=== PATIENT | female | born 1980 | race Caucasian/White ===

== ENCOUNTER 2018-06-07 16:49 | Outpatient (REF) | payer MEDICAID, SELFPAY ==
[2018-06-12 13:18] LABS: 2-OH-Ethyl-Flurazepam Negative ng/mL (Cutoff: 100); 7-NH-Clonazepam Negative ng/mL (Cutoff: 100); 7-NH-Flunitrazepam Negative ng/mL (Cutoff: 50); Alpha OH-Alprazolam Negative ng/mL (Cutoff: 100); Alpha-OH-Triazolam Negative ng/mL (Cutoff: 100); Benzodiazepines Interpretation Negative.; Lorazepam Negative ng/mL (Cutoff: 100); Temazepam Negative ng/mL (Cutoff: 100)
== END 2018-06-07 17:09 ==
LOC: NCHCN 16:49
PROVIDERS: PCP Nurse Practitioner Family; Visit Provider Family Medicine
DX: F11.20 Opioid dependence, uncomplicated (principal)
CPT/HCPCS: 80346

== ENCOUNTER 2018-06-15 15:43 | Outpatient (CLI) | payer MEDICAID, SELFPAY ==
[2018-06-17 10:48] LABS: HIV-1/2 Ag & Ab Screen Negative (NEGAT)
[2018-06-17 11:26] LABS: Hepatitis C Ab w Rflx HCV PCR Negative (NEGAT)
[2018-06-19 10:54] LABS: Syphilis Serology (RPR) Negative (Negative)
[2018-06-19 11:12] LABS: HBs Antibody, Quant 21.5 mIU/mL; Hepatitis B Surface Ab Positive
[2018-06-19 14:24] LABS: Chlamydia Result Negative; GC Result Negative; Specimen Description URINE
== END 2018-06-15 16:03 ==
PROVIDERS: PCP Nurse Practitioner Family; Visit Provider Obstetrics & Gynecology
DX: A64 Unspecified sexually transmitted disease (principal); Z11.3 Encounter for screening for infections with a predominantly sexual mode of transmission; Z11.4 Encounter for screening for human immunodeficiency virus [HIV]; Z11.59 Encounter for screening for other viral diseases; Z01.84 Encounter for antibody response examination
CPT/HCPCS: 36415; 86706; 86803; 87389; 87491; 87591; 86592

== ENCOUNTER 2018-06-28 16:26 | Outpatient (REF) | payer MEDICAID, SELFPAY ==
[2018-07-05 09:56] LABS: Buprenorphine 57.5 ng/mL; Norbuprenorphine 251.7 ng/mL
== END 2018-06-28 16:46 ==
LOC: NCHCN 16:26
PROVIDERS: PCP Nurse Practitioner Family; Visit Provider Family Medicine
DX: F11.20 Opioid dependence, uncomplicated (principal)
CPT/HCPCS: 80307

== ENCOUNTER 2019-01-10 16:03 | Outpatient (REF) | payer MEDICAID, SELFPAY ==
[2019-01-19 07:41] LABS: Amphetamines Interpretation Positive.; MDA (Ecstasy Metabolite) Negative ng/mL (Cutoff: 25); MDMA (Ecstasy) Negative ng/mL (Cutoff: 25); Methamphetamine Negative ng/mL (Cutoff: 25); Phentermine Negative ng/mL (Cutoff: 25); Pseudoephedrine/Ephedrine Negative ng/mL (Cutoff: 25)
== END 2019-01-10 16:23 ==
LOC: NCHCN 16:03
PROVIDERS: PCP Nurse Practitioner Family; Visit Provider Family Medicine
DX: F11.20 Opioid dependence, uncomplicated (principal)
CPT/HCPCS: 80324

== ENCOUNTER 2019-02-15 15:21 | Outpatient (CLI) | payer MEDICAID, SELFPAY ==
[2019-02-17 10:19] LABS: HIV-1/2 Ag & Ab Screen Negative (NEGAT)
[2019-02-19 11:01] LABS: Hepatitis C Ab w Rflx HCV PCR Negative (NEGAT)
[2019-02-19 12:26] LABS: Syphilis Serology (RPR) Negative (Negative)
== END 2019-02-15 15:41 ==
PROVIDERS: PCP Nurse Practitioner Family; Visit Provider Nurse Practitioner Women's Health
DX: Z11.3 Encounter for screening for infections with a predominantly sexual mode of transmission (principal); Z11.4 Encounter for screening for human immunodeficiency virus [HIV]
CPT/HCPCS: 86803; 87389; 86592; 86780

== ENCOUNTER 2019-02-15 17:36 | Outpatient (REF) | payer MEDICAID, SELFPAY ==
[2019-02-19 15:30] LABS: Chlamydia Result Negative; GC Result Negative; Specimen Description CERVIX
== END 2019-02-15 17:56 ==
LOC: LBN 17:36
PROVIDERS: PCP Nurse Practitioner Family; Visit Provider Nurse Practitioner Women's Health
DX: Z11.3 Encounter for screening for infections with a predominantly sexual mode of transmission (principal)
CPT/HCPCS: 87491; 87591

== ENCOUNTER 2019-02-22 15:57 | Outpatient (CLI) | payer MEDICAID, SELFPAY ==
[2019-02-22 19:19] LABS: TSH (W/Ref FT4) 0.81 uIU/mL (0.36-3.74)
== END 2019-02-22 16:17 ==
PROVIDERS: PCP Nurse Practitioner Family; Visit Provider Nurse Practitioner Women's Health
DX: N92.0 Excessive and frequent menstruation with regular cycle (principal); R63.4 Abnormal weight loss; Z12.4 Encounter for screening for malignant neoplasm of cervix; Z11.51 Encounter for screening for human papillomavirus (HPV)
CPT/HCPCS: 36415; 88142; 84443; 87624

== ENCOUNTER 2019-02-22 17:21 | Outpatient (REF) | payer MEDICAID, SELFPAY ==
--- NOTE | 2019-02-22 16:45 | PAPFT_PTH ---
PATIENT: Cleo Purvis LOC: [facility] U#:[id number] AGE/SX: 38/F ROOM: RE02/22/[address]: Ludmila Church NP : 1980 BED: DIS: 02/22/2019 SPEC #: [id number] RECD: 02/22/19 17:59 STATUS: RAINA SMITH #: [id number] DAVID: 02/22/19 16:[address]: Ludmila Church NP DEPT: [facility] Cytology RECD BY: Lara Chaudhry ENTERED: 02/22/19 18:00 SP TYPE: PAPFT OTHR DR: Edna Salazar Tissues: 1 - CX/ENDOCX FOR PAP SMEARS Procedures: PAP THIN PREP/[facility] Screening HPV DNA PROBE Comments: [id number]
== END 2019-02-22 17:41 ==
LOC: LBN 17:21
PROVIDERS: PCP Nurse Practitioner Family; Visit Provider Nurse Practitioner Women's Health
DX: Z12.4 Encounter for screening for malignant neoplasm of cervix (principal); Z11.51 Encounter for screening for human papillomavirus (HPV)
CPT/HCPCS: 88142; 87624

== ENCOUNTER 2019-10-26 16:14 | Outpatient (REF) | payer MEDICAID, SELFPAY ==
[2019-10-26 19:40] LABS: HCT 39.3 % (36.0-46.0); HGB 13.5 g/dL (12.0-15.5); Mean Corp. HGB Concentration 34.4 g/dL (32.0-36.0); Mean Corpuscular Hemoglobin 31.3 pg (27.0-33.0); Mean Corpuscular Volume 91.2 fL (80-95); Mean Platelet Volume 10.8 fL (8.0-11.0); Platelet Count 365 x1000/uL (130-400); RBC 4.31 m/cumm (4.00-5.20); RBC Distribution Width 13.5 % (11.7-14.6); White Blood Cell Count 11.04 k/cumm (4.4-10.8)
[2019-10-26 20:22] LABS: TSH (W/Ref FT4) 1.74 uIU/mL (0.36-3.74)
== END 2019-10-26 16:34 ==
LOC: NCHCN 16:14
PROVIDERS: PCP Nurse Practitioner Family; Visit Provider Nurse Practitioner Family
DX: E07.9 Disorder of thyroid, unspecified (principal); L60.3 Nail dystrophy
CPT/HCPCS: 85027; 84443

== ENCOUNTER 2019-12-13 15:46 | Outpatient (CLI) | payer MEDICAID, SELFPAY ==
--- NOTE | 2019-12-13 | DI.US_ITS ---
EXAM: US LOWER EXTREMITY VENOUS LT CLINICAL HISTORY: SWELLING LEFT LEG M79.89. TECHNIQUE: Ultrasound performed using standard protocol. COMPARISON: US THYROID ULTRASOUND from 10/21/2015 FINDINGS: Duplex venous ultrasound was performed according to the usual protocol. The deep veins are freely com pressible throughout and there is normal flow augmentation with manual calf compression. 2D and Doppl er evaluation are unremarkable. IMPRESSION: No evidence of deep venous thrombosis of the left lower extremity DATA REPOSITORY:
--- NOTE | 2019-12-13 16:44 | DI.VRAD_ITS ---
PROCEDURE INFORMATION: Exam: US Duplex Left Lower Extremity Veins, Limited Exam date and time: 12/13/2019 4:24 PM Age: 39 years old Clinical indication: Pain; Leg, lower; Left TECHNIQUE: Imaging protocol: Real-time Duplex ultrasound of the Left Lower Extremity with 2-D lazar scale, color Doppler flow and spectral waveform analysis with image documentation. Limited exam focused on the left lower extremity veins. COMPARISON: No relevant prior studies available. FINDINGS: Left deep veins: Unremarkable. The common femoral, femoral, proximal profunda femoral and popliteal veins are patent without thrombus. Normal Doppler waveforms. Normal compressibility and/or augmentation response. Left superficial veins: Unremarkable. Saphenofemoral junction is patent without thrombus. Soft tissues: Unremarkable. IMPRESSION: No evidence of deep vein thrombosis. Dictated and Authenticated by: Ashwin Her MD. Ordering:GARY Gonzáles MD
== END 2019-12-13 16:06 ==
PROVIDERS: PCP Nurse Practitioner Family; Visit Provider Family Medicine
DX: M79.605 Pain in left leg (principal); R22.42 Localized swelling, mass and lump, left lower limb
CPT/HCPCS: 93971

== ENCOUNTER 2020-04-01 14:23 | Outpatient (REF) | payer MEDICAID, SELFPAY ==
[2020-04-02 15:07] LABS: Chlamydia Result Negative (Negative); GC Result Negative (Negative)
== END 2020-04-01 14:43 ==
LOC: LBN 14:23
PROVIDERS: PCP Nurse Practitioner Family; Visit Provider Nurse Practitioner Family
DX: Z11.3 Encounter for screening for infections with a predominantly sexual mode of transmission (principal)
CPT/HCPCS: 87491; 87591

== ENCOUNTER 2020-04-09 01:59 | Outpatient (CLI) | payer MEDICAID, SELFPAY ==
--- NOTE | 2020-04-09 08:00 | DI.US_ITS ---
EXAM: US PELVIS TRANSVAGINAL CLINICAL HISTORY: Pelvic cramping,R10.2 TECHNIQUE: Transabdominal and transvaginal imaging was performed using standard protocol. COMPARISON: No exams were available for comparison FINDINGS: UTERUS: Anteverted. 8.0 x 4.1 x 5.1 cm Endometrium: 12 millimeters. Homogeneous. Myometrium: Unremarkable. Cervix: Nabothian cyst OVARIES: Right: Cyst or mass: None. Left: Cyst or mass: None. DOPPLER: Color: Symmetric and uniform flow to both ovaries. No hyperemia. Duplex: Normal ovarian arterial waveforms visualized. CUL-DE-SAC: Free fluid: None. IMPRESSION: 1. Normal-appearing uterus with endometrial stripe within normal limits. 2. Unremarkable bilateral ovaries. DATA REPOSITORY:
== END 2020-04-09 02:19 ==
PROVIDERS: PCP Nurse Practitioner Family; Visit Provider Nurse Practitioner Family
DX: R10.2 Pelvic and perineal pain (principal)
CPT/HCPCS: 76830; 76856

== ENCOUNTER 2020-04-09 16:55 | Outpatient (REF) | payer MEDICAID, SELFPAY ==
[2020-04-17 11:59] LABS: Buprenorphine Negative; Norbuprenorphine Negative
== END 2020-04-09 17:15 ==
LOC: NCHCN 16:55
PROVIDERS: PCP Nurse Practitioner Family; Visit Provider Family Medicine
DX: F11.20 Opioid dependence, uncomplicated (principal)
CPT/HCPCS: 80307

== ENCOUNTER 2020-04-16 21:17 | Outpatient (REF) | payer MEDICAID, SELFPAY ==
[2020-04-22 11:57] LABS: Buprenorphine 21.4 ng/mL; Norbuprenorphine 80.6 ng/mL
== END 2020-04-16 21:37 ==
LOC: NCHCN 21:17
PROVIDERS: PCP Nurse Practitioner Family; Visit Provider Family Medicine
DX: F11.20 Opioid dependence, uncomplicated (principal)
CPT/HCPCS: 80307

== ENCOUNTER 2020-09-25 09:51 | Outpatient (REF) | payer MEDICAID, SELFPAY ==
[2020-09-25 15:47] LABS: Hemoglobin A1C 6.6 % (<5.7)
[2020-09-25 16:35] LABS: ALT 24 U/L (14-59); AST 12 U/L (15-37); Albumin 3.6 g/dL (3.4-5.0); Alkaline Phosphatase 104 U/L (46-116); BUN 12 mg/dL (7-18); Bilirubin, Total 0.2 mg/dL (0.2-1.0); CREATININE 0.9 mg/dL (0.55-1.02); Calcium 8.9 mg/dL (8.5-10.1); Calculated LDL 99 mg/dL (<100); Chloride 108 mmol/L (98-107); Cholesterol 174 mg/dL (<200); Glucose 124 mg/dL (74-106); HDL Cholesterol 59 mg/dL (40-60); Magnesium 1.9 mg/dL (1.8-2.4); Potassium 4.2 mmol/L (3.5-5.1); Sodium 142 mmol/L (136-145); TSH (W/Ref FT4) 0.18 uIU/mL (0.36-3.74); Total Protein 7.3 g/dL (6.4-8.2); Triglyceride 81 mg/dL (<150)
[2020-09-26 09:00] LABS: Hepatitis B Surface Ag Negative (Negative)
[2020-09-26 09:38] LABS: HIV-1/2 Ag & Ab Screen Negative (Negative)
== END 2020-09-25 09:52 | disposition home or self-care (01) ==
LOC: NCHCN 09:51
PROVIDERS: PCP Nurse Practitioner Family; Visit Provider Family Medicine
DX: E83.42 Hypomagnesemia (principal); E07.9 Disorder of thyroid, unspecified; Z11.59 Encounter for screening for other viral diseases; Z11.4 Encounter for screening for human immunodeficiency virus [HIV]; R73.09 Other abnormal glucose; Z68.42 Body mass index [BMI] 45.0-49.9, adult; Z13.220 Encounter for screening for lipoid disorders
CPT/HCPCS: 80053; 80061; 87340; 87389; 83036; 83735; 84439; 84443

== ENCOUNTER 2021-03-25 17:32 | Outpatient (REF) | payer MEDICAID, SELFPAY ==
[2021-03-27 19:51] LABS: COVID-19 RT-PCR UVMMC Result Negative (Negative)
== END 2021-03-25 17:33 | disposition home or self-care (01) ==
LOC: LBN 17:32
PROVIDERS: PCP Nurse Practitioner Family; Visit Provider Internal Medicine
DX: Z20.822 Contact with and (suspected) exposure to COVID-19 (principal)
CPT/HCPCS: U0003

== ENCOUNTER 2021-03-26 19:57 | Outpatient (REF) | payer MEDICAID, SELFPAY | END 2021-03-26 19:58 | disposition home or self-care (01) | LOC: LBN 19:57 | PROVIDERS: PCP Nurse Practitioner Family; Visit Provider Internal Medicine | DX: Z20.822 Contact with and (suspected) exposure to COVID-19 (principal) | CPT/HCPCS: U0003 ==

== ENCOUNTER 2021-06-17 18:47 | Outpatient (REF) | payer MEDICAID, SELFPAY ==
[2021-06-17 18:40] LABS: Hemoglobin A1C 6.5 % (<5.7)
[2021-06-17 18:54] LABS: Magnesium 2.1 mg/dL (1.8-2.4)
== END 2021-06-17 18:48 | disposition home or self-care (01) ==
LOC: NCHCN 18:47
PROVIDERS: PCP Nurse Practitioner Family; Visit Provider Family Medicine
DX: Z20.822 Contact with and (suspected) exposure to COVID-19 (principal); E07.9 Disorder of thyroid, unspecified; E83.42 Hypomagnesemia; R73.09 Other abnormal glucose
CPT/HCPCS: 83036; 83735; 84443

== ENCOUNTER 2021-07-16 11:38 | Outpatient (CLI) | payer MEDICAID, SELFPAY ==
--- NOTE | 2021-07-16 | DI.US_ITS ---
Exam(s) US LOWER EXTREMITY VENOUS LT EXAM: US LOWER EXTREMITY VENOUS LT CLINICAL HISTORY: LT KNEE PAIN, M25.562, LEFT POPLITEAL PAIN, ? DVT TECHNIQUE: Left lower extremity venous ultrasound performed using grayscale, color-flow, and spectra l Doppler analysis. COMPARISON: US US LOWER EXTREMITY VENOUS LT from 12/13/2019 FINDINGS: The left common femoral, femoral and popliteal veins demonstrate normal compressibility, augmentation , and color Doppler. The posterior tibial veins are patent. The saphenofemoral junction is unremarka ble. There is no evidence of a Tate cyst. The soft tissues are unremarkable. IMPRESSION: No DVT. DATA REPOSITORY:
--- OUTSIDE RECORDS SUMMARY | 2021-07-16 11:41 | XMS_ITS ---
:1980 Author Care Team Providers Name Role Phone DONELL AYERS Primary Care Provider [phone] DONELL AYERS Referring Provider [phone] Allergies Code Code System Name Reaction Severity Status Onset Adhesive Tape ? ? Active ? [id number] RxNorm Latex ? ? Active ? Penicillins ? ? Active ? Medications Name Status Start Date Stop Date ? ? Colace 100 mg capsule Completed ? 03/23/2016 Take 1 capsule every day by oral route. Fioricet 50 mg-300 mg-40 mg capsule Active ? Not available Take 1 capsule every 4 hours by oral route. Klonopin 0.5 mg tablet Active ? Not avail able Take 1 tablet twice a day by oral route. Lamictal 100 mg tablet Active ? Not avail able Take 1 tablet every day by oral route. naproxen 500 mg tablet Active ? Not avail able Take 1 tablet twice a day by oral route with meals. Nicoderm CQ 21 mg/24 hr daily transdermal patch Active ? Not available Apply 1 patch every day by transdermal route. Nicorette 4 mg gum Active ? Not available Chew 1 piece of gum every 2 hours by oral route. Prilosec OTC 20 mg tablet,delayed release Active ? Not available Take 1 tablet every day by oral route before meals. ProAir HFA 90 mcg/actuation aerosol inhaler Active ? Not available Inhale 2 puffs every 6 hours by inhalation route as needed. propranolol 20 mg tablet Completed ? 016 Take 1 tablet twice a day by oral route. Suboxone 8 mg-2 mg sublingual film Active ? Not available Place 1 film every day by sublingual route. Voltaren 75 mg tablet,delayed release Active ? Not available Take 1 tablet twice a day by oral route. Zoloft 100 mg tablet Completed ? 03/23/2016 Take 1 tablet every day by oral route. Problems Name Status Onset Date Source ? Abnormal Cervical Papanicolaou Smear Active 11/12/2015 ? Hyperthyroidism Active 03/23/2016 ? Opioid Dependence Active 03/23/2016 ? Substance Abuse Active 03/23/2016 ? Posttraumatic Stress Disorder Active 03/23/2016 ? Depressive Disorder Active 03/23/2016 ? Anger Reaction Active 03/23/2016 ? Gastroesophageal Reflux Disease Active 03/23/2016 ? Constipation Active 03/23/2016 ? Chronic Urinary Tract Infection Active 03/23/2016 ? Paresthesia Active 03/23/2016 ? Edema Active 03/23/2016 ? Headache Active 03/23/2016 ? Palpitations Active 03/23/2016 ? Systolic Murmur Active 03/23/2016 ? 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 Procedures Date Name Performed by ? 09/01/2016 US, Thyroid [facility] (Radiology) [address] [place] [address] (Work Place) Results Lab Results None recorded. Past Encounters None recorded. Social History Tobacco Smoking Status Never Smoker (1/2 pack per Notes: quit 06/27/16 day) Vaccine List None recorded. Plan of Care Reminders Provider Appointments None ? ? recorded. Lab None ? ? recorded. Referral None ? ? recorded. Procedures None ? ? recorded. Surgeries None ? ? recorded. Imaging None ? ? recorded. Vitals 06/27/2017 03:15PM PODIATRY IN-OFFICE PROCEDURE Weight Blood Pressure 120/64 mm[Hg] 06/13/2017 03:00PM FOLLOW UP Weight Blood Pressure 118/60 mm[Hg] 05/16/2017 02:30PM NEW PATIENT Weight Blood Pressure 128.37 kg 116/52 mm[Hg] 03/23/2016 01:00PM ENDOCRINOLOGY FOLLOW UP 30 Height Weight BMI Blood Pressure 157.48 cm 128.37 kg 51.8 kg/m2 118/58 mm[Hg]
== END 2021-07-16 11:58 ==
PROVIDERS: PCP Nurse Practitioner Family; Visit Provider Family Medicine
DX: M25.562 Pain in left knee (principal)
CPT/HCPCS: 93971

== ENCOUNTER 2021-08-03 11:55 | Outpatient (CLI) | payer MEDICAID, SELFPAY ==
--- NOTE | 2021-08-03 12:18 | DI.RAD_ITS ---
Exam(s) XR CHEST 2V PA LATERAL EXAM: XR CHEST 2V PA LATERAL CLINICAL HISTORY: Cough, R05.9, r/o pneumonia. TECHNIQUE: 2D digital imaging was performed. COMPARISON: CT RENAL COLIC WO CONTRAST from 01/01/2016 FINDINGS: Heart size is normal. The mediastinum is not widened. Left lung is clear. Some thickening of the minor fissure in the right lung is noted no confluent inf iltrate at this level. No pleural effusions. IMPRESSION: There is thickening of the minor fissure in the right lung. No other focal findings. No obvious ple ural effusions. DATA REPOSITORY: RADIATION DOSE DELIVERED:
== END 2021-08-03 12:15 ==
PROVIDERS: PCP Nurse Practitioner Family; Visit Provider Nurse Practitioner Family
DX: R05.8 Other specified cough (principal); J98.4 Other disorders of lung
CPT/HCPCS: 71046

== ENCOUNTER 2021-08-03 14:49 | Outpatient (REF) | payer MEDICAID, SELFPAY ==
[2021-08-05 10:53] LABS: COVID-19 RT-PCR UVMMC Result Negative (Negative)
== END 2021-08-03 14:50 | disposition home or self-care (01) ==
LOC: NCHCN 14:49
PROVIDERS: PCP Nurse Practitioner Family; Visit Provider Nurse Practitioner Family
DX: Z20.822 Contact with and (suspected) exposure to COVID-19 (principal)
CPT/HCPCS: U0003

== ENCOUNTER 2021-08-13 10:23 | Outpatient (REF) | payer MEDICAID, SELFPAY ==
--- NOTE | 2021-08-13 09:45 | PAPFT_PTH ---
PATIENT: Cleo Purvis LOC: [facility] U#:[id number] AGE/SX: 41/F ROOM: RE08/13/[address]: SORAIDA Mesa : 1980 BED: DIS: 08/13/2021 SPEC #: [id number] RECD: 08/13/21 12:47 STATUS: RAINA REClaude #: [id number] DAVID: 08/13/21 09:[address]: Teresa Lorenzana DEPT: [facility] Cytology RECD BY: Lara Chaudhry ENTERED: 08/13/21 12:48 SP TYPE: PAPFT OTHR DR: Edna Salazar Tissues: 1 - CX/ENDOCX FOR PAP SMEARS Procedures: PAP THIN PREP/[facility] Screening HPV DNA PROBE Comments: [id number]
== END 2021-08-13 10:24 | disposition home or self-care (01) ==
LOC: LBN 10:23
PROVIDERS: PCP Nurse Practitioner Family; Visit Provider Nurse Practitioner Family
DX: Z12.4 Encounter for screening for malignant neoplasm of cervix (principal); Z11.51 Encounter for screening for human papillomavirus (HPV); R87.810 Cervical high risk human papillomavirus (HPV) DNA test positive
CPT/HCPCS: 88142; 87624

== ENCOUNTER 2021-10-12 18:06 | Outpatient (REF) | payer MEDICAID, SELFPAY ==
[2021-10-12 18:49] LABS: ALT 33 U/L (14-59); AST 19 U/L (15-37); Alkaline Phosphatase 103 U/L (46-116); Anion Gap 10.4 mmol/L (3-11); BUN 14 mg/dL (7-18); Bilirubin, Total 0.2 mg/dL (0.2-1.0); CO2 25.6 mmol/L (21.0-32.0); CREATININE 0.8 mg/dL (0.55-1.02); Calcium 9.2 mg/dL (8.5-10.1); Chloride 104 mmol/L (98-107); Glucose 107 mg/dL (74-106); Hemoglobin A1C 6.9 % (<5.7); Magnesium 2.1 mg/dL (1.8-2.4); Potassium 4.3 mmol/L (3.5-5.1); Sodium 140 mmol/L (136-145); Total Protein 7.5 g/dL (6.4-8.2)
== END 2021-10-12 18:07 | disposition home or self-care (01) ==
LOC: NCHCN 18:06
PROVIDERS: PCP Nurse Practitioner Family; Visit Provider Family Medicine
DX: E83.42 Hypomagnesemia (principal); E11.9 Type 2 diabetes mellitus without complications
CPT/HCPCS: 80053; 83036; 83735

== ENCOUNTER 2022-03-21 09:35 | Emergency (ER) | payer MEDICAID, SELFPAY ==
--- NOTE | 2022-03-21 09:30 | RT.EKG_ITS ---
APPROVED REPORT Exam: Resting ECG Reason for Exam: SOB/chest pain Patient Location: E HR:80 bpm ECG Measurements Heart Rate 80 AXIS MO 125 P 15 QRSd 89 QRS 62 QT 374 T 37 QTc 432 Conclusion Sinus rhythm...normal P axis, V-rate 60- 99
[2022-03-21 09:43] VITALS: BP 128/65; PULSE 92; RESP 18; TEMP 36.8; O2SAT 98
--- NOTE | 2022-03-21 09:45 | DI.RAD_ITS ---
Exam(s) XR PORTABLE CHEST AP EXAM: XR PORTABLE CHEST AP CLINICAL HISTORY: cough. TECHNIQUE: 2D digital imaging was performed. COMPARISON: CR XR CHEST 2V PA LATERAL from 08/03/2021 FINDINGS: Single AP portable view. Heart size is upper normal. The mediastinum is not widened. Mild thickening of the minor fissure on the right side is again noted, slightly more so than previous . This may just be due to differences in projection or because of small area of adjacent infiltrate. Remainder of the right lung is clear. There is density in the left lung apex noted projected over the medial aspect of the left clavicle. Difficult to determine if this is all osseous or also lung i nfiltrate. No other infiltrates. No pleural effusions evident. No pneumothorax. IMPRESSION: As above. Recommend follow-up CT scan. DATA REPOSITORY: RADIATION DOSE DELIVERED: All CT scans at this facility use at least one of these dose optimization techniques: automated exposure control; mA and/or kV adjustment per patient size (includes targeted e xams where dose is matched to clinical indication); or iterative reconstruction.
--- NOTE | 2022-03-21 09:55 | ED.GENADUL_ITS ---
Discharge Plan Disposition Patient Disposition: HOME Condition: Improving Discharge Details Clinical Impression: Atypical pneumonia, Exacerbation of reactive airway disease Primary Care Provider: Edna Salazar ED Provider: Jace Degroot Home Meds and New Rx's Prescriptions: New prednisone 50 mg tablet 50 mg PO DAILY 5 Days Qty: 5 0RF doxycycline hyclate 100 mg capsule 100 mg PO BID 9 Days Qty: 18 0RF Continued Vyvanse 40 mg capsule 40 mg PO DAILY albuterol sulfate 90 mcg/actuation HFA aerosol inhaler 1 inh inhalation ONCE dextroamphetamine-amphetamine [Adderall XR] 30 mg capsule,extended release 24hr 30 mg PO DAILY dextroamphetamine-amphetamine [Adderall] 10 mg tablet 10 mg PO DAILY buprenorphine-naloxone [Suboxone] 1 EACH film 10 mg Sublingual DAILY fluoxetine 20 mg capsule 1 cap PO DAILY Label Comments: TAKE ONE CAPSULE BY MOUTH EVERY DAY metformin 500 mg tablet extended release 24 hr 2 tab PO DAILY Label Comments: TAKE TWO TABLETS BY MOUTH ONCE EVERY DAY budesonide-formoterol [Symbicort] 160-4.5 mcg/actuation HFA aerosol inhaler 1 inh INHALATION BID Label Comments: INHALE ONE PUFF BY MOUTH TWICE A DAY Trulicity 3 mg/0.5 mL pen injector 3 mg SUBCUT QWEEK Label Comments: INJECT 3 MG UNDER SKIN ONCE A WEEK Discharge Instructions Instructions: Reactive Airways Disease (ED), Pneumonia (ED) Additional Instructions: Your COVID test today was negative. You do have evidence of a pneumonia as we discussed. Please take antibiotics as prescribed until finished. Take prednisone once daily until finished. Follow-up with regular doctor if not improving in 3 to 5 days time. Return to the emergency department for any acute concerns Medical Decision Making This is a 41-year-old female smoker with a history of reactive airway disease. She has had 3 to 4 days of cough, congestion, production of brown sputum as well as wheezing and increased use of rescue inhaler at home. She is oxygenating normally and afebrile but demonstrates diffuse wheezing on exam. Patient given oral prednisone and DuoNeb updraft. Her chest x-ray reveals hazy opacities outlined the right minor fissure, mid and lower lung guevara. Consistent with an atypical pneumonia. She is improving and continues to oxygenate normally and speak in full sentences without difficulty. I will place her on a course of antibiotics and a burst of prednisone. She is stable and appropriate for outpatient management. HPI General Mode of arrival: ambulatory . Date/Time Provider Initiated Documentation: 03/21/22 09:41 . Limitations to Documentation: no limitations . Information obtained by: patient . History of Present Illness 41 year old F presents to the emergency department with the chief complaint of Cough, shortness of breath and wheezing, described as moderate, Quality is described as other (tight), and is localized to the chest. Patient reports no radiation. Patient started experiencing this day(s) and it has been constant. No relieving factors improve symptom(s), No exacerbating factors reported . Patient notes cough, fever/chills and shortness of breath; denies chest pain, loss of appetite and nausea/vomiting. Patient did receive the following treatments prior to arrival, other (Using ProAir every 2-4 hours) Related Data Home Medications Medication Instructions Recorded Confirmed buprenorphine 8 mg-naloxone 2 mg 10 mg sublingual DAILY 04/15/14 03/21/22 sublingual film (Suboxone) lisdexamfetamine 40 mg capsule 40 mg PO DAILY 02/15/19 03/21/22 (Vyvanse) albuterol sulfate 90 mcg/actuation 1 inh inhalation ONCE 08/03/21 03/21/22 aerosol inhaler dextroamphetamine-amphetamine 10 10 mg PO DAILY 08/13/21 03/21/22 mg tablet (Adderall) dextroamphetamine-amphetamine ER 30 mg PO DAILY 08/13/21 30 mg 24hr capsule,extend release (Adderall XR) budesonide-formoterol HFA 160 1 inh inhalation BID 03/21/22 03/21/22 mcg-4.5 mcg/actuation aerosol inhaler (Symbicort) doxycycline hyclate 100 mg capsule 100 mg PO BID 9 days #18 caps 03/21/22 dulaglutide 3 mg/0.5 mL 3 mg subcut QWEEK 03/21/22 03/21/22 subcutaneous pen injector (Trulicity) fluoxetine 20 mg capsule 1 cap PO DAILY 03/21/22 03/21/22 metformin 500 mg tablet,extended 2 tab PO DAILY 03/21/22 03/21/22 release 24 hr prednisone 50 mg tablet 50 mg PO DAILY 5 days #5 tabs 03/21/22 Previous Rx's Medication Instructions Recorded doxycycline hyclate 100 mg capsule 100 mg PO BID 9 days #18 caps 03/21/22 prednisone 50 mg tablet 50 mg PO DAILY 5 days #5 tabs 03/21/22 Allergies Allergy/AdvReac Type Severity Reaction Status Date / Time Latex, Natural Rubber Allergy Intermediate Skin Rash Verified 03/21/22 09:49 Penicillins Allergy Mild FAMILIAL Verified 03/21/22 09:49 Adhesives AdvReac Mild Rash Uncoded 03/21/22 09:49 General Stated Complaint: RespSymp STEPHANIE: 3 Review of Systems Narrative: Cough with production of brown sputum, wheezing and shortness of breath. Negative COVID test at home. Immunized against COVID. 8 systems were reviewed and otherwise negative. See HPI PFSH All Active Problems (Updated 03/21/22 @ 10:50 by Jace Degroot MD) Atypical pneumonia (Acute) Exacerbation of reactive airway disease (Acute) Alcohol abuse (Chronic) Tobacco use (Acute 09/14/17) Personal history of cervical dysplasia (Acute 04/15/14) 2000 - PETEY III Obesity, unspecified (Acute 08/12/15) Depression (Acute 04/15/14) Medical History (Updated 03/21/22 @ 10:50 by Jace Degroot MD) Depression History of drug abuse Obesity Tobacco use Surgical History Excision, Skin Mass (12/08/17) left breast - follicular cyst Family History Mother Depression Father Hyperlipidemia COPD (chronic obstructive pulmonary disease) at 74 Paternal Grandmother Breast cancer Social History Smoking/Tobacco Use Status: Current every day Tobacco Type: cigarettes Smoking risk assessment performed?: Yes Alcohol Intake: current Alcohol Intake frequency: holidays/special occasions only Drug use: Current Sobriety Substance use type: former substance user Sexually active: Yes Do you think of yourself as: bisexual Current gender identity: female Do you feel safe at home: Yes Do you feel safe in your relationship?: Yes Female Reproductive History Menstrual Duration of menses: 6-7 days control method: condoms History History 3 Para 3 Hx # Term Pregnancies Multiple births Hx # Pregnancies Ectopic pregnancies AB induced Hx Number of Living Children AB spontaneous Exam Narrative Exam Narrative: GEN: awake, alert, oriented 3. Pleasant, well groomed, interactive. HEAD: Normocephalic, atraumatic ENT: Mucous membranes moist, oropharynx unremarkable, tympanic membranes clear bilaterally external ear exam unremarkable EYES: PERRL, EOMI NECK: Full ROM, no NIKUNJ, no menigismus CHEST/RESP: Nontender, diminished with diffuse wheezing present CARDIOVASCULAR: RRR, no murmur, rub charli. 2+ Rad pulse bilateral ABDOMEN: Soft, nontender, no mass. +Bowel sounds EXT: Full ROM, no edema, no rash Neuro: Grossly normal neurologic exam, conversant, interactive. Psych: Speech fluent, thoughts congruent, affect normal Course Vital Signs Vital signs: Vital Signs Temperature 36.8 C 03/21/22 09:43 Pulse 92 H 03/21/22 09:43 Respiratory Rate 18 03/21/22 09:43 Blood Pressure 128/65 03/21/22 09:43 Pulse Oximetry 98 03/21/22 09:43 Temperature 36.8 C 03/21/22 09:43 Temperature Source Temporal Artery Scan 03/21/22 09:43 Pulse 92 H 03/21/22 09:43 Respiratory Rate 18 03/21/22 09:43 Respiratory Effort 03/21/22 09:47 Respiratory Depth Normal 03/21/22 09:47 Blood Pressure 128/65 03/21/22 09:43 Blood Pressure Position Sitting 03/21/22 09:43 Pulse Oximetry 98 03/21/22 09:43 Oxygen Delivery Method Room Air 03/21/22 09:43 Oxygen Flow Rate 0 03/21/22 09:43 Pain Level 1 03/21/22 09:43
[2022-03-21 10:23] VITALS: RESP 18; RESP 4; RESP 7; O2SAT 98
[2022-03-21] MEDS: Albuterol/Ipratropium 3 ML UPD VIAL UPD (10:23)
[2022-03-21] MEDS: predniSONE 20 MG TAB 60 MG PO (10:23)
--- NOTE | 2022-03-21 10:40 | DI.VRAD_ITS ---
PROCEDURE INFORMATION: Exam: XR Chest Exam date and time: 03/21/2022 9:55 AM Age: 41 years old Clinical indication: Cough TECHNIQUE: Imaging protocol: Radiologic exam of the chest. Views: 1 view. COMPARISON: CR XR CHEST 2V PA LATERAL 08/03/2021 12:09 PM FINDINGS: Lungs: Subtle hazy opacity outlining the right minor fissure. Mild patchy mid and lower lung zone ground-glass opacities. Pleural spaces: No pleural effusion. No pneumothorax. Heart/Mediastinum: Heart size is within normal limits allowing for technique. Bones/joints: Mild degenerative changes of the shoulders and spine. IMPRESSION: Patchy, hazy bilateral pulmonary opacities suspicious for atypical pneumonia. Dictated and Authenticated by: Catrina Parr MD. Ordering:ALEC Mccormick MD
[2022-03-21 11:03] LABS: COVID-19 PCR Negative (Negative); Influenza A PCR Negative (Negative); Influenza B PCR Negative (Negative); RSV PCR Negative (Negative)
== END 2022-03-21 11:12 | disposition home or self-care (01) ==
PROVIDERS: Emergency Provider Emergency Medicine; PCP Nurse Practitioner Family
DX: J45.901 Unspecified asthma with (acute) exacerbation (principal); J18.9 Pneumonia, unspecified organism; F17.210 Nicotine dependence, cigarettes, uncomplicated; Z79.51 Long term (current) use of inhaled steroids
CPT/HCPCS: 87637; 93005; 99283; 71045; 93010; 99285; J7512; J7620

== ENCOUNTER 2022-07-23 12:42 | Outpatient (CLI) | payer MEDICAID, SELFPAY ==
--- NOTE | 2022-07-23 | DI.RAD_ITS ---
Exam(s) XR HIP LT COMPLETE AP PELVIS EXAM: XR HIP LT COMPLETE AP PELVIS CLINICAL HISTORY: LT HIP PAIN, M25.552. TECHNIQUE: 2D digital imaging was performed of the left hip. Two views were obtained. AP pelvis an d lateral left hip views were obtained. COMPARISON: No exams were available for comparison FINDINGS: BONES: No acute fracture is present. No bony destructive lesion is seen. JOINTS: No dislocation present. SOFT TISSUE: Normal. IMPRESSION: Unremarkable radiographs of the left hip. Unremarkable radiographs of the pelvis DATA REPOSITORY: RADIATION DOSE DELIVERED:
== END 2022-07-23 13:02 ==
LOC: DI 12:44
PROVIDERS: PCP Nurse Practitioner Family; Visit Provider Nurse Practitioner Family
DX: M25.552 Pain in left hip (principal)
CPT/HCPCS: 73502

== ENCOUNTER 2022-10-21 15:12 | Outpatient (REF) | payer MEDICAID, SELFPAY ==
[2022-10-21 17:30] LABS: Anion Gap 9.5 mmol/L (3-11); BUN 14 mg/dL (7-18); CO2 24.5 mmol/L (21.0-32.0); CREATININE 0.9 mg/dL (0.55-1.02); Calcium 9.4 mg/dL (8.5-10.1); Chloride 105 mmol/L (98-107); Estimated GFR 82.88 (mL/min/1.73m2); Glucose 111 mg/dL (74-106); Potassium 4.3 mmol/L (3.5-5.1); Sodium 139 mmol/L (136-145); TSH (W/Ref FT4) 0.26 uIU/mL (0.36-3.74)
[2022-10-21 17:49] LABS: FREE T4 0.99 ng/dL (0.76-1.46)
== END 2022-10-21 15:13 | disposition home or self-care (01) ==
LOC: NCHCN 15:12
PROVIDERS: PCP Nurse Practitioner Family; Visit Provider Family Medicine
DX: E11.9 Type 2 diabetes mellitus without complications (principal)
CPT/HCPCS: 80048; 84439; 84443

== ENCOUNTER 2022-11-09 14:51 | Outpatient (REF) | payer MEDICAID, SELFPAY ==
--- NOTE | 2022-11-09 14:10 | PAPFT_PTH ---
PATIENT: Cleo Purvis LOC: [facility] U#:[id number] AGE/SX: 42/F ROOM: RE11/09/[address]: Ludmila Church NP : 1980 BED: DIS: 11/09/2022 SPEC #: [id number] RECD: 11/09/22 18:15 STATUS: RAINA REQ #: [id number] DAVID: 11/09/22 14:[address]: Ludmila Church NP DEPT: [facility] Cytology RECD BY: Lara Chaudhry ENTERED: 11/09/22 18:15 SP TYPE: PAPFT OTHR DR: Eliecer Hernandez Tissues: 1 - CX/ENDOCX FOR PAP SMEARS Procedures: PAP THIN PREP/[facility] Screening HPV DNA PROBE Comments: [id number] (CHLAMYDIA/GC)
[2022-11-10 15:34] LABS: Chlamydia Result Negative (Negative); GC Result Negative (Negative)
== END 2022-11-09 14:52 | disposition home or self-care (01) ==
LOC: LBN 14:51
PROVIDERS: PCP Family Medicine; Visit Provider Nurse Practitioner Women's Health
DX: Z11.3 Encounter for screening for infections with a predominantly sexual mode of transmission (principal); Z12.4 Encounter for screening for malignant neoplasm of cervix; R87.610 Atypical squamous cells of undetermined significance on cytologic smear of cervix (ASC-US); Z11.51 Encounter for screening for human papillomavirus (HPV); Z87.410 Personal history of cervical dysplasia
CPT/HCPCS: 87491; 87591; 88142; 87624

== ENCOUNTER 2022-11-24 01:49 | Outpatient (CLI) | payer MEDICAID, SELFPAY ==
--- NOTE | 2022-11-24 09:15 | DI.MAMMO_ITS ---
Exam(s) MAMMO SCREENING EXAM: MAMMO SCREENING CLINICAL HISTORY: screening TECHNIQUE: Mammograms were interpreted according to the usual protocol including computer analysis w [employer] CAD system, tomosynthesis and C-view imaging. COMPARISON: No exams were available for comparison. Baseline examination. FINDINGS: The breasts are composed of scattered fibroglandular densities, Breast Density category B. No suspicious masses or suspicious microcalcifications are seen. No skin thickening or abnormal axillary lymph nodes are seen. IMPRESSION: BI-RADS Category 1, Negative mammogram Yearly screening mammography is recommended. Breast Density - Category B, scattered fibroglandular densities. A negative radiographic report should not delay biopsy if a dominant or clinically suspicious mass is present. Up to ten percent of cancers are not identified on mammography. A negative report may reinforce clinical impression. Adenosis and dense breasts may obscure an underlying neoplasm. False positive reports average 6 to 10%. Patient will receive a letter notifying them of these results.
== END 2022-11-24 02:09 ==
LOC: DI 01:49
PROVIDERS: PCP Family Medicine; Visit Provider Nurse Practitioner Women's Health
DX: Z12.31 Encounter for screening mammogram for malignant neoplasm of breast (principal)
CPT/HCPCS: 77063; 77067

== ENCOUNTER 2022-12-27 04:27 | Outpatient (CLI) | payer MEDICAID, SELFPAY ==
[2022-12-27 14:42] LABS: HCT 38.6 % (36.0-46.0); HGB 13.3 g/dL (11.2-15.7); MCH 30.2 pg (27.0-33.0); MCHC 34.5 % (32.0-36.0); MCV 88 fL (80-95); MPV 10.6 fL (8.0-11.0); Platelet Count 263 10^3/uL (130-400); RBC 4.41 10^6/uL (3.93-5.22); RDW-SD 41.8 fL
== END 2022-12-27 04:28 | disposition home or self-care (01) ==
LOC: LBO 04:27
PROVIDERS: PCP Family Medicine; Visit Provider Obstetrics & Gynecology
DX: N93.8 Other specified abnormal uterine and vaginal bleeding (principal); Z87.410 Personal history of cervical dysplasia; Z01.818 Encounter for other preprocedural examination; Z01.812 Encounter for preprocedural laboratory examination
CPT/HCPCS: 36415; 85027; 86850; 86900; 86901

== ENCOUNTER 2022-12-29 07:42 | Day surgery (SDC) | payer MEDICAID, SELFPAY ==
[2022-12-29] VITALS (10 sets, daily range): BP systolic 131–185; BP diastolic 59–114; PULSE 66–91; RESP 14–22; TEMP 36.4–36.7; O2SAT 92–99; BMI 47.2
--- NOTE | 2022-12-29 08:29 | W.ANESPRE ---
General Info Date of Service Date Performed: 12/29/22 Height: 5 ft 2 in Weight: 117.1 kg Body Mass Index (BMI): 47.2 Surgical Procedure: Operation Date: 12/29/22 08:55 Proposed Procedure Side Surgeon p Dilation & Curettage with Hysteroscopy Kavita Fernandes MD s Endometrial Ablation w/Waylon Fernandes MD Actual Procedure Side Surgeon p Dilation & Curettage with Hysteroscopy Not Applicable Kavita Fernandes MD s Endometrial Ablation w/Waylon Fernandes MD Meds Allergies and Home Medications Allergies Allergy/AdvReac Type Severity Reaction Status Date / Time Latex, Natural Rubber Allergy Intermediate Skin Rash Verified 12/29/22 07:56 Penicillins Allergy Mild FAMILIAL Verified 12/29/22 07:56 Adhesives AdvReac Mild Rash Uncoded 12/29/22 07:56 Home Medication Medication Instructions Recorded albuterol sulfate 90 mcg/actuation 1 inh inhalation ONCE 08/03/21 aerosol inhaler methylphenidate HCl 36 mg 36 mg PO DAILY 11/09/22 tablet,extended release 24 hr (Concerta) semaglutide 2 mg/dose (8 mg/3 mL) 2 mg subcut QWEEK 11/09/22 subcutaneous pen injector (Ozempic) Current Visit Medications: Current Medications Generic Name Dose Route Start Last Admin Trade Name Freq PRN Reason Stop Dose Admin Ringer's Solution 1,000 mls @ 125 mls/hr 12/29/22 06:00 IV 01/27/23 23:59 INFUSION DORIS IV Miscellaneous Supplies 1 each 12/29/22 06:00 Iv Access IV 01/27/23 23:59 DIRECTED DORIS Sodium Chloride 0 ml 12/29/22 06:00 Normal Saline Flush 10 Ml Syr IV 01/27/23 23:59 PRN PRN Sodium Chloride 0 ml 12/29/22 06:00 Normal Saline 10 Ml Vial IJ 01/27/23 23:59 DIRECTED PRN Sterile Water 0 ml 12/29/22 06:00 Water,Injection,Sterile 10 Ml Vial IJ 01/27/23 23:59 DIRECTED PRN PFSH Active Problems Active Problems: Problem Status Onset Code Depression 04/15/14 F32.9 Obesity, unspecified 08/12/15 E66.9 Personal history of cervical dysplasia 04/15/14 Z87.410 Tobacco use 09/14/17 Z72.0 Alcohol abuse F10.10 Abnormal uterine bleeding N93.9 Medical History Medical History Depression History of drug abuse 10+ years ago Obesity Tobacco use Surgical History Surgical History Excision, Skin Mass (12/08/17) left breast - follicular cyst Tobacco Smoking/Tobacco Use Status: Current every day Tobacco Type: cigarettes Passive smoking exposure: No Alcohol Alcohol Intake: never Substance Use Substance use: Current Sobriety Substance use type: former substance user Prental History History 3 Para 3 Hx # Term Pregnancies Multiple births Hx # Pregnancies Ectopic pregnancies AB induced Hx Number of Living Children AB spontaneous Vital Signs and Lab Results Vital Signs Most Recent Vital Signs in EMR: Most Recent Vital Signs Temp Pulse Resp BP Pulse Ox 36.5 C 91 H 17 131/86 99 12/29/22 07:59 12/29/22 07:59 12/29/22 07:59 12/29/22 07:59 12/29/22 07:59 Point of Care Results Point of Care Results: POC- Test(urine) Negative 12/29/22 07:59 Lab Results Blood Type / Crossmatch: Patient ABO/Rh B Positive 12/27/22 Antibody Screen NEGATIVE 12/27/22 Complete Blood Count: White Blood Count 7.90 10^3/uL (4.4-10.8) 12/27/22 14:30 Red Blood Count 4.41 10^6/uL (3.93-5.22) 12/27/22 14:30 Hemoglobin 13.3 g/dL (11.2-15.7) 12/27/22 14:30 Hematocrit 38.6 % (36.0-46.0) 12/27/22 14:30 Platelet Count 263 10^3/uL (130-400) 12/27/22 14:30 Complete Metabolic Panel: No Data to Display Liver Function Panel: No Data to Display Coagulation Panel: No Data to Display Cardiac Panel: No Data to Display Arterial Blood Gas: No Data to Display Venous Blood Gas: No Data to Display Pancreas Panel: No Data to Display Thyroid Panel: No Data to Display Infectious Disease: No Data to Display Blood Cultures: No Data to Display Toxicology Panel: No Data to Display Panel: No Data to Display Anesthesia Assessment and Plan Anesthesia History Personal History: No History of Anesthesia Complications Family History: No Family History of Anesthesia Complications Exercise Tolerance Exercise Tolerance: Metabolic Equivalents>4 Pertinent Negatives Pertinent Negatives: No Symptoms of GERD, No Major Cardiovascular Symptoms or Complaints and No Major Pulmonary Symptoms or Complaints Cardiac & Pulmonary Exam Cardiac Exam: Normal S1/S2 Heart Sounds Pulmonary Exam: Clear Bilateral Breath Sounds Implantable Cardiac Device Does patient have a Pacemaker or an ICD?: No Airway Exam Known Difficult Airway: No Mallampati Class: 2 Mouth Opening: Normal (> 3cm) Thyromental Distance: Greater than 3 cm Neck Range of Motion: Full ROM Neck Circumference: Normal Teeth Condition: Normal Dentition ASA Classification ASA Score: ASA 3 Emergency Case?: No NPO Status NPO Status: NPO Clears >2 hours, Solids >8 hours Status Status: Negative HCG Anesthesia Plan Resuscitation Status: Full Code Anesthesia Technique: General Anesthesia Airway Planned: Endotracheal Tube Monitors Used: Standard Monitors
[2022-12-29] MEDS: Lactated Ringers 1,000 ML 125 ML IV (09:12)
--- NOTE | 2022-12-29 09:46 | ENDOMET_PTH ---
PATIENT: Cleo Purvis LOC: [facility] U#:[id number] AGE/SX: 42/F ROOM: RE12/29/[address]: Kavita Fernandes MD : 1980 BED: DIS: 12/29/2022 SPEC #: [id number] RECD: 12/29/22 12:41 STATUS: RAINA REClaude #: [id number] DAVID: 12/29/22 09:[address]: Kavita Fernandes DEPT: Surgical Specimen RECD BY: Lara Chaudhry ENTERED: 12/29/22 12:42 SP TYPE: Endomet OTHR DR: Eliecer Hernandez Tissues: 1 - ENDOMETRIUM BX/CLEMENT Procedures: GROSS AND MICRO LEVEL 4 Comments: [id number]
--- NOTE | 2022-12-29 10:12 | ROE_ITS ---
Date of service: 12/29/22 Time of Service: 09:00 Operative Note Operative Note DATE OF PROCEDURE: 12/29/22 PRE-OP DIAGNOSIS: Abnormal uterine bleeding POST-OP DIAGNOSIS: same PROCEDURE: D&C Hysteroscopy, novasure endometrial ablation SURGEON: Kavita Fernadnes Refer to Anesthesia Record ESTIMATED BLOOD LOSS: 20 COMPLICATIONS: None Patient was transported to: PACU Patient's condition: stable Indications: Abnormal uterine bleeding and failed medical management. Does not like side effects of nexplanon. No need for contraception. Findings: Normal appearing external genitalia, vagina, cervix, and uterine cavity. Uterine length 5cm, width 3,6cm. Power 99. Time 1min 4sec. Procedure Description: After informed consent was signed the patient was taken to the operating room and given General room air anesthesia.? SCDs were placed on her legs.? She was prepped and draped in the dorsal lithotomy position in the [facility].? A time out was performed. Her bladder was drained of urine if not done just prior to arrival to the room.? Exam under anesthesia revealed normal external genitalia, vagina normal for age and a normal sized uterus. A speculum was placed into the vagina to reveal the cervix.? The anterior lip of the cervix was grasped with a single tooth tenaculum.? The cervical length was measured with a large dilator. The cervix was then dilated until a uterine sound could be inserted to measure the total length. The?cavity length was then calculated at 5cm. The hysteroscope was assembled and the uterine cavity was visualized. No obvious abnormalities were noted. A sharp curettage was performed. The novasure device was opened and the cavity length set. It was inserted into the endometrial cavity and the width was measured at 3.6cm. The cavity assessment was performed and passed. The device was then deployed for the appropriate amount of time. The device was removed and the wand inspected and appeared thoroughly charred. The hysteroscope was again inserted into the endometrial cavity and it appeared to be thoroughly treated. It was removed from the endometrial cavity. The tenaculum was removed from the cervix with good hemostasis.? The speculum was removed from the vagina. The patient was placed back into the supine position.? She was moved to the [facility] and taken to the recovery room in stable condition.
--- NOTE | 2022-12-29 10:17 | W.PM.DSUDISC ---
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
[2022-12-29] MEDS: Normal Saline 10 ML VIAL IJ (10:23)
[2022-12-29] MEDS: HYDROmorphone 2 MG/ML SYR IVP ×4 (10:23→10:54)
--- NOTE | 2022-12-29 11:08 | W.ANESPOSTOP ---
Postoperative Evaluation Date, Time and Location Date Performed: 12/29/22 Time Performed: 11:11 Patient Location: PACU Vital Signs Most Recent Imported Vital Signs: Most Recent Vital Signs Temp Pulse Resp BP Pulse Ox 36.7 C 66 20 185/99 H 92 12/29/22 11:04 12/29/22 11:04 12/29/22 11:04 12/29/22 11:04 12/29/22 11:04 Pain Score Most Recent Pain Score: Most Recent Pain Score Pain Level 4 12/29/22 11:04 Assessment Mental Status: Awake (Alert & Oriented to Patient Baseline) Airway and Respiratory Function: Patent airway with normal (patient baseline) respiratory exam Cardiovascular Function: Hemodynamically Stable Hydration Status: Adequately Hydrated Nausea & Vomiting: No Nausea or Vomiting Pain: Pain is tolerable per patient Peripheral Nerve Block: Patient did not receive a nerve block
== END 2022-12-29 12:00 | disposition home or self-care (01) ==
PROVIDERS: PCP Family Medicine; Visit Provider Obstetrics & Gynecology
PROC: 0UDB8ZZ Extraction of Endometrium, Via Natural or Artificial Opening Endoscopic (ICD-10-PCS; CPT 58558; principal; 2022-12-29 08:45)
DX: N93.9 Abnormal uterine and vaginal bleeding, unspecified (principal); N85.00 Endometrial hyperplasia, unspecified
CPT/HCPCS: 58563; 81025; 88305; J1100; J1170; J1885; J2250; J2405

== ENCOUNTER 2023-01-26 16:22 | Outpatient (REF) | payer MEDICAID, SELFPAY | END 2023-01-26 16:23 | disposition home or self-care (01) | LOC: LBN 16:22 | PROVIDERS: PCP Family Medicine; Visit Provider Obstetrics & Gynecology | DX: N89.8 Other specified noninflammatory disorders of vagina (principal) | CPT/HCPCS: 87480; 87510; 87660 ==

== ENCOUNTER 2023-06-23 20:03 | Outpatient (REF) | payer MEDICAID, SELFPAY ==
[2023-06-28 04:36] LABS: Methylphenidate 23 ng/mL (Cutoff: 10); Ritalinic Acid 26477 ng/mL (Cutoff: 50)
[2023-06-29 09:06] LABS: Norbuprenorphine 26.9 ng/mL (Cutoff: 2.5)
[2023-06-29 09:50] LABS: Amphetamine 226 ng/mL (Cutoff: 25); Amphetamines Interpretation Positive.; MDA (Ecstasy Metabolite) Negative ng/mL (Cutoff: 25); MDMA (Ecstasy) Negative ng/mL (Cutoff: 25); Methamphetamine Negative ng/mL (Cutoff: 25); Phentermine Negative ng/mL (Cutoff: 25); Pseudoephedrine/Ephedrine Negative ng/mL (Cutoff: 25)
== END 2023-06-23 20:04 | disposition home or self-care (01) ==
LOC: NCHCN 20:03
PROVIDERS: PCP Family Medicine; Visit Provider Family Medicine
DX: F90.8 Attention-deficit hyperactivity disorder, other type (principal); Z79.899 Other long term (current) drug therapy; F11.20 Opioid dependence, uncomplicated
CPT/HCPCS: 80324; 80348; 80360

== ENCOUNTER 2023-09-22 19:45 | Outpatient (REF) | payer MEDICAID, SELFPAY ==
[2023-09-22 22:06] LABS: Hemoglobin A1C 6.1 % (<5.7)
[2023-09-22 22:07] LABS: ALT 26 U/L (14-59); AST 13 U/L (15-37); Albumin 3.6 g/dL (3.4-5.0); Alkaline Phosphatase 98 U/L (46-116); Anion Gap 10.7 mmol/L (3-11); BUN 14 mg/dL (7-18); Bilirubin, Total 0.2 mg/dL (0.2-1.0); CO2 25.3 mmol/L (21.0-32.0); CREATININE 0.8 mg/dL (0.55-1.02); Calcium 9.1 mg/dL (8.5-10.1); Calculated LDL 106 mg/dL (<100); Chloride 105 mmol/L (98-107); Cholesterol 181 mg/dL (<200); Estimated GFR 94.87 (mL/min/1.73m2); Glucose 94 mg/dL (74-106); HDL Cholesterol 55 mg/dL (40-60); Potassium 4.3 mmol/L (3.5-5.1); Sodium 141 mmol/L (136-145); TSH (W/Ref FT4) 0.34 uIU/mL (0.36-3.74); Total Protein 6.9 g/dL (6.4-8.2); Triglyceride 103 mg/dL (<150)
== END 2023-09-22 19:46 | disposition home or self-care (01) ==
LOC: NCHCN 19:45
PROVIDERS: PCP Family Medicine; Visit Provider Family Medicine
DX: E11.9 Type 2 diabetes mellitus without complications (principal); E05.90 Thyrotoxicosis, unspecified without thyrotoxic crisis or storm
CPT/HCPCS: 80053; 80061; 83036; 84439; 84443

== ENCOUNTER 2024-02-29 12:55 | Outpatient (CLI) | payer BC, SELFPAY ==
--- NOTE | 2024-02-29 | DI.RAD_ITS ---
Exam(s) XR CLAVICLE LT EXAM: XR CLAVICLE LT CLINICAL HISTORY: DISORDER OF BONE, M89.9, FIRM EDEMA OVER MEDIAL ASPECT CLAVICLE TECHNIQUE: 2D digital imaging was performed of the left clavicle. Two images were obtained. AP and axial views were obtained. COMPARISON: No exams were available for comparison FINDINGS: BONES: No acute fracture is present. No bony destructive lesion is seen. JOINTS: No dislocation present. The acromioclavicular joint appears well maintained. SOFT TISSUE: There are calcifications seen in the soft tissues adjacent to the lateral aspect of the humeral head suspicious for calcific tendinitis. IMPRESSION: Unremarkable radiographs of the left clavicle. DATA REPOSITORY: RADIATION DOSE DELIVERED:
== END 2024-02-29 13:15 ==
PROVIDERS: PCP Nurse Practitioner Family; Visit Provider Physician Assistant
DX: M89.212 Other disorders of bone development and growth, left shoulder (principal)
CPT/HCPCS: 73000

== ENCOUNTER 2024-03-16 11:34 | Outpatient (REF) | payer BC, SELFPAY ==
--- NOTE | 2024-03-16 10:00 | PAPFT_PTH ---
PATIENT: Cleo Purvis LOC: [facility] U#:[id number] AGE/SX: 43/F ROOM: RE03/16/[address]: Polina King DO : 1980 BED: DIS: 03/16/2024 SPEC #: [id number] RECD: 03/16/24 13:29 STATUS: RAINA REQ #: [id number] DAVID: 03/16/24 10:[address]: Polina King DEPT: [facility] Cytology RECD BY: Lara Chaudhry ENTERED: 03/16/24 13:30 SP TYPE: PAPFT OTHR DR: SULAIMAN GOMEZ NP Tissues: 1 - CX/ENDOCX FOR PAP SMEARS Procedures: PAP THIN PREP/UVM Screening HPV DNA PROBE Comments: [id number] (HPV 16 & 18/45)
== END 2024-03-16 11:35 | disposition home or self-care (01) ==
LOC: LBN 11:34
PROVIDERS: PCP Nurse Practitioner Family; Visit Provider Obstetrics & Gynecology
DX: Z12.4 Encounter for screening for malignant neoplasm of cervix (principal)
CPT/HCPCS: 88142; 87624

== ENCOUNTER 2024-04-27 00:30 | Outpatient (CLI) | payer BC, SELFPAY ==
--- NOTE | 2024-04-27 08:25 | DI.MAMMO_ITS ---
Exam(s) MAMMO SCREENING EXAM: MAMMO SCREENING CLINICAL HISTORY: screening,z12.39 TECHNIQUE: Bilateral full field digital CC and MLO mammographic images were obtained with 3D tomosyn thesis and utilizing computer aided detection (CAD). COMPARISON: Available for comparison. FINDINGS: Masses/Architectural Distortion: There is focal asymmetry in the upper outer quadrant of the left guido ast. This may represent overlying fibroglandular tissue but spot compression views are requested. N o areas of architectural distortion are seen. Microcalcifications: No suspicious pleomorphic-type are seen. Skin Thickening/Nipple Retraction: None. IMPRESSION: 1. Area focal asymmetry in the upper outer quadrant of the left breast. 2. Spot compression views requested for further evaluation. Limited ultrasound may be indicated at t hat time. BI-RADS Category 0 - Incomplete: Need additional imaging evaluation Breast Density - Category B - Scattered areas of fibroglandular density Breast density category C or D implies that the patient has dense breast tissue. Dense breast tissue is very common and is not abnormal but dense breast tissue can make it harder to find cancer on a ma mmogram. Also, dense breast tissue may increase their breast cancer risk. This information about the result of the mammogram report was provided to the patient to raise their awareness. Use this report when you speak with the patient about their risks for breast cancer, which includes their family hist ory. At that time, you may recommend for more screening tests (Ultrasound or MRI) as they might be us eful based on their risk. A negative radiographic report should not delay biopsy if a dominant or clinically suspicious mass is present. Up to ten percent of cancers are not identified on mammography. A negative report may reinforce clinical impression. Adenosis and dense breasts may obscure an underlying neoplasm. False positive reports average 6 to 10%. Patient will receive a letter notifying them of these results.
== END 2024-04-27 00:50 ==
PROVIDERS: PCP Nurse Practitioner Family; Visit Provider Obstetrics & Gynecology
DX: Z12.31 Encounter for screening mammogram for malignant neoplasm of breast (principal)
CPT/HCPCS: 77063; 77067

== ENCOUNTER 2024-05-04 00:32 | Outpatient (CLI) | payer BC, SELFPAY ==
--- NOTE | 2024-05-04 10:10 | DI.MAMMO_ITS ---
Exam(s) MG MAMMO SCREEN CALL BACK UNI US BREAST LT COMPLETE EXAM: MG MAMMO SCREEN CALL BACK UNI-COMPLETE LEFT BREAST ULTRASOUND CLINICAL HISTORY: AREA FOCAL ASYMMETRY UPPER OUTER QUADRANT LEFT BREAST R92.8 ABNL MAMMO. TECHNIQUE: Unilateral left breast spot mammographic images obtained with 3D tomosynthesisand [employer] computer aided detection (CAD). . Complete left breast Ultrasound was also performed, including all 4 quadrants, the retroareolar regio n, and the ipsilateral axilla. COMPARISON: Prior mammograms were reviewed. This additional imaging was performed due to findings described on the recent screening mammogram of 04/27/2024. FINDINGS: DIAGNOSTIC MAMMOGRAM: Additional mammographic views performed todayrender this area less concerning. COMPLETE LEFT BREAST ULTRASOUND: Ultrasound performed today reveals a benign 5 x 4 mm microcyst at the 2 o'clock position, possibly co rresponding the finding on the recent mammogram. This may be incidental finding on ultrasound as the additional mammographic spot compression views performed today are less concerning. At the 9 o'clock position there is a 3 mm oil cyst which corresponds to finding on the mammogram. At the 10 o'clock position there is a 5 x 4 mm oral cysts which also corresponds to similar benign fi nding on the mammogram. There are no other focal ultrasound findings in all 4 quadrants. Scanning of the ipsilateral axilla reveals no significant adenopathy. IMPRESSION: 1. Benign appearing left breast findings as described above Appropriate follow-up as discussed by myself with the patient today is repeat left breast mammogram i n 6 months. The patient was informed of these findings and recommendations by myself prior to leaving the departm ent today. BI-RADS Category 3 - 6 month - Probably Benign Finding: Recommend follow-up mammography in 6 months Breast Density - Category B - Scattered areas of fibroglandular density Breast density Category C or D implies that the patient has dense breast tissue. Dense breast tissue can make it harder to find cancer on a mammogram. Dense breast tissue is also associated with an incr eased risk of breast cancer. This information about the result of the mammogram report was provided to the patient to raise their awareness. Use this report when you speak with the patient about their risks for breast cancer, which includes their family history. At that time, you may recommend additional screening tests (Ultrasoun d or MRI) as these tests may add significant information. A negative radiographic report should not delay biopsy if a dominant or clinically suspicious mass is present. Up to ten percent of cancers are not identified on mammography. A negative report may reinforce clinical impression. Adenosis and dense breasts may obscure an underlying neoplasm. False positive reports average 6 to 10%. Patient will receive a letter notifying them of these results.
== END 2024-05-04 00:52 ==
PROVIDERS: PCP Nurse Practitioner Family; Visit Provider Obstetrics & Gynecology
DX: Z12.31 Encounter for screening mammogram for malignant neoplasm of breast (principal); N60.02 Solitary cyst of left breast
CPT/HCPCS: 76642; 77063; 77067

== ENCOUNTER 2024-09-24 14:45 | Outpatient (REF) | payer BC, SELFPAY ==
[2024-09-24 15:42] LABS: Hemoglobin A1C 5.7 % (<5.7)
[2024-09-24 15:48] LABS: ALT 32 U/L (14-59); AST 16 U/L (15-37); Albumin 3.7 g/dL (3.4-5.0); Alkaline Phosphatase 102 U/L (46-116); Anion Gap 10.2 mmol/L (3-11); BUN 12 mg/dL (7-18); Bilirubin, Total 0.2 mg/dL (0.2-1.0); CO2 23.8 mmol/L (21.0-32.0); CREATININE 0.7 mg/dL (0.55-1.02); Calcium 8.9 mg/dL (8.5-10.1); Chloride 106 mmol/L (98-107); Estimated GFR 110.67 (mL/min/1.73m2); Glucose 95 mg/dL (74-106); Potassium 4.2 mmol/L (3.5-5.1); Sodium 140 mmol/L (136-145)
[2024-09-24 22:03] LABS: T3,Free 3.3 pg/mL (2.8-5.3)
== END 2024-09-24 14:46 | disposition home or self-care (01) ==
LOC: NCHCN 14:45
PROVIDERS: PCP Nurse Practitioner Family; Visit Provider Nurse Practitioner Family
DX: E11.9 Type 2 diabetes mellitus without complications (principal); E05.90 Thyrotoxicosis, unspecified without thyrotoxic crisis or storm
CPT/HCPCS: 80053; 83036; 84481

== ENCOUNTER 2024-10-16 00:51 | Outpatient (CLI) | payer BC, SELFPAY ==
--- NOTE | 2024-10-16 06:30 | DI.MAMMO_ITS ---
Exam(s) MG MAMMO DIAGNOSTIC UNI EXAM: MG MAMMO DIAGNOSTIC UNI CLINICAL HISTORY: 6-month follow-up,abnl mammo lt breast,r92.8,microcysts TECHNIQUE: Cc and MLO mammogram images were performed according to the usual protocol including computer analysis with CAD system, tomosynthesis and C-view imaging. COMPARISON: MG MG MAMMO SCREENING from 04/27/2024 US US BREAST LT COMPLETE from 05/04/2024 MG MG MAMMO SCREEN CALL BACK UNI from 05/04/2024 FINDINGS: The left breast is composed of scattered fibroglandular densities, Breast Density category B. No suspicious masses or suspicious microcalcifications are seen. No skin thickening or abnormal axillary lymph nodes are seen. IMPRESSION: BI-RADS Category 3 - Annual - Resume Annual Screening . Breast Density - Category B, scattered fibroglandular densities. A negative radiographic report should not delay biopsy if a dominant or clinically suspicious mass is present. Up to ten percent of cancers are not identified on mammography. A negative report may reinforce clinical impression. Adenosis and dense breasts may obscure an underlying neoplasm. False positive reports average 6 to 10%. Patient will receive a letter notifying them of these results.
== END 2024-10-16 01:11 ==
LOC: DI 00:51
PROVIDERS: PCP Nurse Practitioner Family; Visit Provider Obstetrics & Gynecology
DX: R92.8 Other abnormal and inconclusive findings on diagnostic imaging of breast (principal); Z12.31 Encounter for screening mammogram for malignant neoplasm of breast
CPT/HCPCS: 77061; 77065; G0279

== ENCOUNTER 2025-04-18 11:26 | Outpatient (REF) | payer BC, SELFPAY ==
[2025-04-18 15:19] LABS: Hemoglobin A1C 5.5 % (<5.7)
[2025-04-18 15:24] LABS: Anion Gap 10.5 mmol/L (3-11); BUN 11 mg/dL (7-18); CO2 25.5 mmol/L (21.0-32.0); Calcium 8.9 mg/dL (8.5-10.1); Calculated LDL 67 mg/dL (<100); Chloride 103 mmol/L (98-107); Cholesterol 140 mg/dL (<200); Estimated GFR 93.70 (mL/min/1.73m2); Glucose 117 mg/dL (74-106); HDL Cholesterol 60 mg/dL (>or=50); Potassium 4.4 mmol/L (3.5-5.1); Sodium 139 mmol/L (136-145); TSH (W/Ref FT4) 0.45 uIU/mL (0.36-3.74); Triglyceride 65 mg/dL (<150)
== END 2025-04-18 11:27 | disposition home or self-care (01) ==
LOC: NCHCN 11:26
PROVIDERS: PCP Nurse Practitioner Family; Visit Provider Nurse Practitioner Family
DX: E05.90 Thyrotoxicosis, unspecified without thyrotoxic crisis or storm (principal); E78.5 Hyperlipidemia, unspecified; E11.9 Type 2 diabetes mellitus without complications
CPT/HCPCS: 80048; 80061; 83036; 84443